=== PATIENT | female | born 1960 | race Caucasian/White ===

== ENCOUNTER 2017-08-09 21:58 | Emergency (ER) | payer MEDICARE, MEDICAID ==
[~2017-08-09] VITALS: Ht 162.6 cm; Wt 108.9 kg
[2017-08-09 22:15] VITALS: BP 116/74
[2017-08-09 23:50] VITALS: BP 119/76
--- NOTE | 2017-08-10 00:07 | Emergency Room Report ---
History of Present Illness General Chief Complaint: General Complaint Source: Patient, Medical Record Present Illness HPI [id number] arrives in ED from [facility] at 11pm, had epistaxis left nostril 7 hours prior at 4pm. Patient states resolved at 410 without intervention Has not had recurrent epistaxis since Denies history of HTN States she was "picking nose" at 4pm while watching TV Allergies: Coded Allergies: No Known Allergies (Unverified , 08/09/17) Patient History Past Medical History: psych hx Past Surgical History: none Pertinent Family History: none Social History: Denies: smoking, alcohol use, drug use Last Menstrual Period: nA Now: No Immunizations: UTD Reviewed Nursing Documentation: PMH: Agreed, PSxH: Agreed Nursing Documentation-PMH Hx COPD: Yes Review of Systems All Other Systems: negative except mentioned in HPI Physical Exam Vital Signs Date Time Temp Pulse Resp B/P (MAP) Pulse Ox O2 Delivery O2 Flow Rate FiO2 08/09/17 22:02 98.8 53 18 116/74 94 Room Air Sp02 EP Interpretation: reviewed, normal General Appearance: normal inspection, well appearing, no apparent distress, alert, GCS 15, non-toxic Head: normocephalic, atraumatic Eyes: bilateral eye PERRL, bilateral eye EOMI ENT: normal ENT inspection, hearing grossly normal, normal pharynx, no angioedema, normal voice, other - Dried blood in bilateral nares. No active bleeding. No blood in oropharynx Neck: normal inspection, full range of motion, supple, no bony tend Respiratory: normal inspection, lungs clear, normal breath sounds, no respiratory distress, no retraction, no wheezing Cardiovascular #1: regular rate, rhythm, no edema Gastrointestinal: normal inspection, normal bowel sounds, non tender, soft, no guarding, no hernia Genitourinary: no CVA tenderness Musculoskeletal: normal inspection, back normal, normal range of motion, Lori' s Sign negative Neurologic: normal inspection, alert, oriented x3, responsive, speech normal Psychiatric: normal inspection, judgement/insight normal, mood/affect normal Skin: normal inspection, normal color, no rash Lymphatic: normal inspection Medical Decision Making Diagnostic Impression: Primary Impression: Epistaxis ER Course Epistaxis now resolved VSS. Afebrile No active bleeding No history of HTN Likely d/t digital manipulation DC back to [facility] Last Vital Signs Date Time Temp Pulse Resp B/P (MAP) Pulse Ox O2 Delivery O2 Flow Rate FiO2 08/09/17 22:02 98.8 53 18 116/74 94 Room Air Status: improved Disposition: [facility] Condition: Improved Referrals: MELANIA CEJA (PCP) Patient Instructions: Nosebleed, [id number] Additional Instructions: - Patient had nosebleed at 4pm. Resolved at 410. - No active bleeding here - DC back to [facility] JENNIEFR KIRK M.D. Aug 10, 2017 00:07
[2017-08-10 00:50] VITALS: BP 119/76
== END 2017-08-10 00:50 ==
LOC: EDBD 21:58 → EMR 08-10
DX: R04.0 Epistaxis (principal); J44.9 Chronic obstructive pulmonary disease, unspecified
CPT/HCPCS: 99283